=== PATIENT | female | born 1985 | race Caucasian/White ===

== ENCOUNTER → 2020-03-02 | Outpatient (CLI) | payer BC, OTHER | LOC: SJCVCIMAG 07:44 | PROVIDERS: ATTEND Internal Medicine | DX: I45.10 Unspecified right bundle-branch block (principal); I48.92 Unspecified atrial flutter ==

== ENCOUNTER → 2020-03-23 | Outpatient (CLI) | payer BC, OTHER | LOC: LAB 10:48 | PROVIDERS: ATTEND Internal Medicine Cardiovascular Disease | DX: Z20.822 Contact with and (suspected) exposure to COVID-19 (principal); Z01.812 Encounter for preprocedural laboratory examination ==

== ENCOUNTER → 2020-04-13 | Outpatient (CLI) | payer BC, OTHER ==
[~2020-04-13] MED LIST: MIRENA1 EACH INTRAUTERI; PRADAXA150 MG PO; SUPER THERAVIT1 EACH PO; TOPROL XL25 MG PO
== END ==
LOC: LAB 09:41
PROVIDERS: ATTEND Internal Medicine Cardiovascular Disease
DX: Z01.812 Encounter for preprocedural laboratory examination (principal); Z20.822 Contact with and (suspected) exposure to COVID-19

== ENCOUNTER 2020-04-16 06:16 | Observation (INO) | payer BC, OTHER ==
[2020-04-16] VITALS (15 sets, daily range): BP systolic 93–117; BP diastolic 57–69
[~2020-04-16] VITALS: Ht 167.6 cm; Wt 64.4 kg
[2020-04-16] MEDS ORDERED: ELIQUIS5 M1 PO (07:37)
[2020-04-16 07:39] LABS: ABSOLUTE NEUTROPHILS 2.8 thou/uL (1.4-8.2); BASOPHILS 0.8 % (0.0-2.0); EOSINOPHILS 1.7 % (0.0-3.0); HEMATOCRIT 42.7 % (37.0-47.0); HEMOGLOBIN 14.2 gm/dL (12.0-15.0); LYMPHOCYTES 34.3 % (24.0-44.0); MCH 28.5 pg (26.0-34.0); MCHC 33.2 g/dL (28.0-37.0); MCV 85.8 fL (80.0-100.0); MONOCYTES 7.4 % (1.0-8.0); PLATELET COUNT 220 thou/uL (150-400); POLYS 55.8 % (36.0-66.0); RBC 4.98 mil/uL (4.20-5.00); RDW 12.6 % (10.5-14.5)
[2020-04-16 07:41] LABS: CALCIUM 9.2 mg/dL (8.5-10.1); CREATININE 1.2 mg/dL (0.6-1.0); POTASSIUM 3.9 mmol/L (3.5-5.1)
[2020-04-16 07:43] LABS: INR 1.1; PROTIME 11.9 Seconds (9.3-11.4)
[2020-04-16 07:46] LABS: ALBUMIN 4.5 g/dL (3.4-5.0); TOTAL PROTEIN 8.2 g/dL (6.4-8.2)
--- NOTE | 2020-04-16 12:45 | NUR ---
PT ARRIVED TO UNIT APPROX 1140. BEDREST ORDERS. R AND L GROIN SITES CDI, NO HEMATOMAS. VSS. DENIES PAIN. ADMISSION COMPLETE. TELE STRIP PRINTED AND DOCUMENTED. SB SR ON MONITOR. DENIES NEEDS AT THIS TIME. WILL CONTINUE TO FOLLOW POC.
[2020-04-17 00:30] VITALS: BP 101/60
[2020-04-17 03:45] VITALS: BP 100/59
--- NOTE | 2020-04-17 04:14 | NUR ---
RESTED QUIETLY MOST OF SHIFT. UP AD DAV TO BATHROOM WITH STEADY GAIT. BILATERAL GROINS WITH DSG C/D/I, NO BLEEDING OR HEMATOMA. NPO PAST MN FOR POSSIBLE PM PLACEMENT THIS AM. DENIES COMPLAINTS OF PAIN. WORKING ON GOALS AND PLAN OF CARE FOR NOC. CONTINUE TO ASSES CLOSELY.
[2020-04-17 04:35] VITALS: BP 102/60
--- NOTE | 2020-04-17 05:22 | NUR ---
ASSUMED CARE OF PT AT 0510. PT IS ALERT AND ORIENT TIMES THREE. STABLE. SLEEPY. NPO SINCE MN FOR PLACEMENT OF A PACER. WILL CONTINUE TO MONITOR.
[2020-04-17 07:13] VITALS: BP 98/54
[2020-04-17 08:57] VITALS: BP 98/54
--- NOTE | 2020-04-17 09:28 | NUR ---
ASSUMED CARE SHIFT CHANGE. ASSESSMENT CHARTED. MEDS GIVEN. VSS. DENIES PAIN/CP/SOB. UP AD DAV TOLERATIGN WELL. SB-SR. R AND L GROINS REMAIN CDI NO HEMATOMAS. DC ORDERS IMPLEMENTED. DISCUSSED WITH PT COMMUNICATING UNDERTANDING. TELE REMOVED. IV REMOVED. PT LEFT WITH ALL BELONGINGS ACCOMPANIED BY .
--- NOTE | 2020-04-20 16:13 | P ---
[facility] [place] [address] PROCEDURE REPORT Name: GUME JIMENEZ Room #: 201-P [facility] Leobardo Finn#: [id number] Admission: 04/16/20 Attend Phys: Omar Krishnan MD Discharge: 04/17/20 Date of : 81 Report #: [id number] THIS REPORT FOR: cc: NO FAMILY PHYSICIAN or PCP NO FAMILY PHYSICIAN or PCP Omar Krishnan MD ~ DATE OF SERVICE: 04/16/2020 SVT ABLATION PREOPERATIVE DIAGNOSIS: Typical atrioventricular nelsy reentrant tachycardia. POSTOPERATIVE DIAGNOSIS: Typical arteriovenous nelsy reentrant tachycardia. PROCEDURES PERFORMED: 1. SVT ablation, CPT code 81664. 2. EP with left atrial pacing and recording, CPT code 45868. 3. Intracardiac echo, CPT code 11897. 4. 3D mapping, CPT code 74320. HISTORY OF PRESENT ILLNESS: The patient is a 34-year-old female with a history of prior surgical VSD repair as an . She was recently found to be in typical atrial flutter. She is here for atrial flutter ablation. ANESTHESIA: The patient underwent MAC anesthesia with no anesthesia related complications. DESCRIPTION OF PROCEDURE: The patient underwent informed consent. We discussed the details of the procedure including the risks, which include but not limited to bleeding, vascular damage, stroke, NH, cardiac perforation as well as damage to the [place] conduction system requiring permanent pacemaker. She understood these risks and is willing to proceed. The patient was brought to EP laboratory in fasting and sedated state, prepped and draped in a sterile fashion. I obtained access to the bilateral femoral veins placing an 8 and a 9-Albanian short sheath in the right femoral vein and a 7-Albanian short sheath in the left femoral vein. I placed a decapolar catheter into the coronary sinus for left atrial pacing and recording and ICE catheter into the right atrium. Of note, she did have somewhat of a rotated heart in the large right ventricle, but had a very, very short isthmus. At baseline, the patient was in atrial flutter with a ventricular cycle length of 607 milliseconds, atrial cycle length of 305 milliseconds with proximal and distal activation along the coronary sinus, QRS duration of 183 milliseconds with a preexisting right bundle-branch block. Next, I placed an 8 mm ablation catheter into the right atrium and we created a 3D geometry and activation map which demonstrated that she had a cavotricuspid isthmus dependent flutter. I then performed entrainment from 6 o'clock along [facility] [address] [place] [address] PROCEDURE REPORT Name: GUME JIMENEZ Room #: [id number] Admission: 04/16/20 Attend Phys: Omar Krishnan MD Discharge: 04/17/20 Date of : 81 Report #: [id number] the cavotricuspid isthmus and the PPI minus tachycardia cycle length was 10 milliseconds consistent with cavotricuspid isthmus dependent flutter. ABLATION: Next, the patient was prepped for ablation. I placed an 8 mm catheter via a ramp sheath and performed ablation at 70 daly and 60 degrees at 6 o'clock along the cavotricuspid isthmus. Of note, she had a very, very short isthmus and termination of her flutter occurred in less than 100 seconds of ablation. With termination of her atrial flutter, she did have a 4.7-second conversion pause. We did perform atrial pacing and then her sinus node eventually woke up. We performed post-ablation testing and there was evidence of bidirectional block with a transisthmus conduction time of 170 milliseconds. I did perform some additional ablation along the posterior aspect of her isthmus. As this area was somewhat hard to get in contact as it was quite vertical. A basic EP study was performed and AV block was noted at 320 milliseconds. I looked for AH and HV interval and could not easily localized to this. I did perform several sinus node recovery times and at 400 milliseconds or sooner, it was 400 milliseconds and at 300 milliseconds burst pacing for a minute, her sinus node recovery time was 5600 milliseconds. However, otherwise her sinus rate was within acceptable range, Post-ablation, she was in sinus rhythm with sinus cycle length of 950 milliseconds, CO interval 160 milliseconds, QRS duration 180 milliseconds, QT interval 435 milliseconds. Using intracardiac ultrasound, there is no evidence of pericardial effusion and as such, the procedure was concluded. Catheters and sheaths were pulled and hemostasis was obtained and the patient awoke neurologically and hemodynamically intact. No complications and no significant bleeding. CONCLUSIONS: 1. 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 2. Evidence of mild sick sinus syndrome, which may be related to prior open heart surgery. 3. Normal AV nelsy function. 4. Normal His-Purkinje function. 5. No other inducible arrhythmias on or off isoproterenol. RECOMMENDATIONS: Given her bradycardic episodes, we will monitor in the CCU overnight. If this remains stable, we will discharge home with a secured entrance monitor to ensure that she does not have any true sick sinus syndrome down the road. <ELECTRONICALLY SIGNED> By: Omar Krishnan MD 04/20/20 1613 1110 1145 MD sri Ford
== END 2020-04-17 09:20 | disposition home or self-care (01) ==
LOC: CATH 06:16 → 2N 11:50 → CATH 12:30 → 2N 04-17 09:20
PROVIDERS: ADMIT Internal Medicine Cardiovascular Disease; ATTEND Internal Medicine Cardiovascular Disease
DX: I48.92 Unspecified atrial flutter (principal); I47.1 Supraventricular tachycardia; Z79.899 Other long term (current) drug therapy
CPT/HCPCS: 62110; 62900; 70005